=== PATIENT | female | born 1955 | race African-American/Black ===

== ENCOUNTER 2018-12-19 08:26 | Emergency (ER) | payer MEDICARE, OTHER ==
[~2018-12-19] VITALS: Ht 162.6 cm; Wt 115.2 kg
[2018-12-19] MEDS ORDERED: Isovue-300 100ml vial INJ PRN (08:30)
[2018-12-19] MEDS ORDERED: TRAZODONE HCL50 MG ORAL (08:34)
[2018-12-19] MEDS ORDERED: METFORMIN500 MG/5 M PO (08:34)
[2018-12-19] MEDS ORDERED: COLACE100 MG ORAL (08:34)
[2018-12-19] MEDS ORDERED: GUAIFENESIN200 MG ORAL (08:34)
[2018-12-19] MEDS ORDERED: METOPROLOL TART25 MG ORAL (08:34)
[2018-12-19] MEDS ORDERED: OMEPRAZOLE20 M2 ORAL (08:34)
[2018-12-19] MEDS ORDERED: VOLTAREN25 MG PO (08:34)
[2018-12-19] MEDS ORDERED: Morphine Sulfate 4mg/ml Inj (IV USE ONLY) IVP ONE (08:45)
[2018-12-19 09:12] LABS: BASOPHILS % (AUTO) 0.7 % (0.0-2.0); EOSINOPHILS % (AUTO) 2.7 % (0.0-3.0); HEMATOCRIT 41.4 % (37.0-47.0); HEMOGLOBIN 13.4 G/DL (12.0-16.0); MEAN CORPUSCULAR VOLUME 88 FL (80-99); MONOCYTES % (AUTO) 2.1 % (1.0-10.0); NEUTROPHILS % (AUTO) 76.5 % (45.0-75.0); PLATELET COUNT 310 K/UL (150-450); RED CELL DISTRIBUTION WIDTH 13.1 % (11.6-14.8); WHITE BLOOD COUNT 5.7 K/UL (4.8-10.8)
--- NOTE | 2018-12-19 09:21 | Emergency Room Report ---
History of Present Illness General Chief Complaint: Abdominal Pain Source: Patient, EMS Present Illness HPI This patient has a history of stage IV metastatic colon cancer. She underwent chemotherapy last week. She states that prior to that her last chemotherapy was in September of this year. She had been doing well. She underwent chemotherapy on of last week. She states on Tuesday she began developing left lower quadrant abdominal pain and recurrent diarrhea. She states the pain is severe. She denies nausea or vomiting. She denies dysuria or hematuria. She is not on any pain medication. She denies fever or chills. She has no other complaints. Allergies: Coded Allergies: IBUPROFEN (Verified Allergy, Unknown, 12/19/18) Patient History Past Medical History: see triage record, DM, HTN, asthma, other - Stage 4 metastatic ca Social History: Denies: smoking, alcohol use, drug use Reviewed Nursing Documentation: PMH: Agreed; PSxH: Agreed Nursing Documentation-PMH Past Medical History: No History, Except For Hx Hypertension: Yes Hx Asthma: Yes Hx COPD: No - POSSIBLE METASTATIC DISEASE OF LUNG Hx Diabetes: Yes Hx Cancer: Yes - COLON CA Review of Systems All Other Systems: negative except mentioned in HPI Physical Exam Vital Signs Date Time Temp Pulse Resp B/P (MAP) Pulse Ox O2 Delivery O2 Flow Rate FiO2 12/19/18 08:14 97.5 102 18 125/78 (94) 93 Room Air Sp02 EP Interpretation: reviewed, normal General Appearance: no apparent distress, alert, GCS 15, non-toxic Head: normocephalic, atraumatic Eyes: bilateral eye normal inspection, bilateral eye PERRL ENT: hearing grossly normal, normal pharynx, no angioedema, normal voice Neck: full range of motion, supple/symm/no masses Respiratory: chest non-tender, lungs clear, normal breath sounds, no respiratory distress, no retraction, no accessory muscle use, speaking full sentences Cardiovascular #1: regular rate, rhythm, no edema Gastrointestinal: soft, non-distended, no guarding, no rebound, tenderness - TTP in the LLQ Rectal: deferred Musculoskeletal: back normal, gait/station normal, normal range of motion, non- tender Neurologic: alert, oriented x3, responsive, motor strength/tone normal, sensory intact, speech normal Psychiatric: judgement/insight normal, memory normal, mood/affect normal, no suicidal/homicidal ideation Skin: normal color, no rash, warm/dry, well hydrated Medical Decision Making Diagnostic Impression: Primary Impression: Abdominal pain Additional Impression: Diarrhea ER Course This patient has a known history of colon cancer. CT of her abdomen and pelvis show findings on her colon consistent with malignancy. There was notation on the CT abdomen and pelvis that there could be an underlying colitis but it is difficult to determine this based on the known colon cancer. I will go ahead and treat the patient as colitis. I will also give the patient pain medication to treat her metastatic colon cancer and abdominal pain. She was instructed to follow-up closely with her oncologist and primary care physician for further treatment, monitoring and evaluation. She is given close return precautions and follow-up instructions. Laboratory Tests Test 12/19/18 08:50 12/19/18 10:45 White Blood Count 5.7 K/UL (4.8-10.8) Red Blood Count 4.70 M/UL (4.20-5.40) Hemoglobin 13.4 G/DL (12.0-16.0) Hematocrit 41.4 % (37.0-47.0) Mean Corpuscular Volume 88 FL (80-99) Mean Corpuscular Hemoglobin 28.6 PG (27.0-31.0) Mean Corpuscular Hemoglobin Concent 32.5 G/DL (32.0-36.0) Red Cell Distribution Width 13.1 % (11.6-14.8) Platelet Count 310 K/UL (150-450) Mean Platelet Volume 7.1 FL (6.5-10.1) Neutrophils (%) (Auto) 76.5 % (45.0-75.0) H Lymphocytes (%) (Auto) 18.0 % (20.0-45.0) L Monocytes (%) (Auto) 2.1 % (1.0-10.0) Eosinophils (%) (Auto) 2.7 % (0.0-3.0) Basophils (%) (Auto) 0.7 % (0.0-2.0) Sodium Level 139 MMOL/L (136-145) Potassium Level 4.0 MMOL/L (3.5-5.1) Chloride Level 103 MMOL/L (98-107) Carbon Dioxide Level 27 MMOL/L (21-32) Anion Gap 9 mmol/L (5-15) Blood Urea Nitrogen 12 mg/dL (7-18) Creatinine 0.7 MG/DL (0.55-1.30) Estimate Glomerular Filtration Rate > 60 mL/min (>60) Glucose Level 115 MG/DL (74-106) H Calcium Level 9.2 MG/DL (8.5-10.1) Total Bilirubin 0.4 MG/DL (0.2-1.0) Aspartate Amino Transferase (AST) 14 U/L (15-37) L Alanine Aminotransferase (ALT) 18 U/L (12-78) Alkaline Phosphatase 63 U/L (46-116) Total Protein 7.0 G/DL (6.4-8.2) Albumin 2.6 G/DL (3.4-5.0) L Globulin 4.4 g/dL Albumin/Globulin Ratio 0.6 (1.0-2.7) L Lipase 86 U/L (73-393) Urine Color Pale yellow Urine Appearance Clear Urine pH 7 (4.5-8.0) Urine Specific Clay 1.010 (1.005-1.035) Urine Protein Negative (NEGATIVE) Urine Glucose (UA) Negative (NEGATIVE) Urine Ketones 2+ (NEGATIVE) H Urine Blood Negative (NEGATIVE) Urine Nitrite Negative (NEGATIVE) Urine Bilirubin Negative (NEGATIVE) Urine Urobilinogen Normal MG/DL (0.0-1.0) Urine Leukocyte Esterase 1+ (NEGATIVE) H Urine RBC 0-2 /HPF (0 - 2) Urine WBC 2-4 /HPF (0 - 2) Urine Squamous Epithelial Cells Moderate /LPF (NONE/OCC) H Urine Bacteria Occasional /HPF (NONE) CT/MRI/US Diagnostic Results CT/MRI/US Diagnostic Results : Imaging Test Ordered: CT abd/pelvis Impression Impression: Endoluminal stent within the proximal descending colon. Note that the ends of the stent, particularly the proximal end, are not centered within the colonic lumen. Wall thickening of the descending colon and distal splenic flexure. Infiltration of the pericolonic fat and regional lymphadenopathy. Given stated clinical history of colon carcinoma the presence of the above-mentioned stent, this presumably represents an area of malignancy. However, given the presence of colonic diverticula and surrounding inflammatory changes incidentally noted, the possibility of superimposed acute diverticulitis should also be considered. In addition, given stated clinical history of diarrhea, findings could in part represent colitis. Fairly extensive colonic diverticulosis elsewhere. Multiple lung nodules. Most likely on the basis of metastatic disease given known clinical history Somewhat prominent gastric mucosal folds; doubt significance but possibly gastritis should be considered Borderline cardiomegaly Pericardial effusion Focal fatty infiltration in the liver Uterine fibroids, degenerative spondylosis, fat-containing umbilical hernia, focal hepatic fatty change central venous catheter incidentally noted Last Vital Signs Date Time Temp Pulse Resp B/P (MAP) Pulse Ox O2 Delivery O2 Flow Rate FiO2 12/19/18 08:14 97.5 102 18 125/78 (94) 93 Room Air Status: improved Disposition: HOME, SELF-CARE Condition: Improved Patient Instructions: Abdominal Pain, Adult Jillian Valentino DO Dec 19, 2018 09:21
[2018-12-19 09:39] VITALS: BP 132/71
[2018-12-19 09:39] LABS: ALANINE AMINOTRANSFERASE 18 U/L (12-78); ALBUMIN 2.6 G/DL (3.4-5.0); ALBUMIN/GLOBULIN RATIO 0.6 (1.0-2.7); ALKALINE PHOSPHATASE 63 U/L (46-116); ANION GAP 9 mmol/L (5-15); ASPARTATE AMINO TRANSFERASE 14 U/L (15-37); BILIRUBIN,TOTAL 0.4 MG/DL (0.2-1.0); BLOOD UREA NITROGEN 12 mg/dL (7-18); CALCIUM 9.2 MG/DL (8.5-10.1); CARBON DIOXIDE 27 MMOL/L (21-32); CHLORIDE 103 MMOL/L (98-107); CREATININE 0.7 MG/DL (0.55-1.30); SODIUM 139 MMOL/L (136-145)
--- NOTE | 2018-12-19 10:49 | Diagnostic Imaging Report ---
Clinical Indication: Abdominal pain, history of stage IV metastatic colon cancer, left lower quadrant abdominal pain and recurrent diarrhea Technique: No oral contrast utilized, per emergency room physician request IV administration nonionic contrast. Venous phase spiral acquisition obtained through the abdomen and pelvis. Multiplanar reconstructions were generated. Total dose length product 1455.16 mGycm. CTDIvol(s) 26.25 mGy. Dose reduction achieved using automated exposure control Comparison: none Findings: There is an area of colon wall thickening involving the distal aspect of the splenic flexure and extending into the proximal descending colon. There is a stent in place in this area. However, the proximal orifice of the stent is covered by the lateral wall of the colon rather than being centered within the lumen. The distal orifice of the stent may also to some extent be covered by the posterior wall of the colon, but at least a portion of the distal orifice opens into the colon lumen. The central part of the stent is somewhat narrowed to approximately 12 mm. There is some thickening of the adjacent fascia as well as infiltration of the pericolonic fat in this area. No extraluminal gas or fluid is demonstrated. There is fairly extensive colonic diverticulosis. There is mild wall thickening of the distal descending colon without pericolonic fat infiltration. There are a few prominent regional lymph nodes demonstrated. The appendix is normal. No small bowel distention. There is a tiny umbilical hernia which contains only fat, as well as mild diastasis of the rectus abdominis tendon. No free or loculated intraperitoneal gas or fluid. Gastric mucosal folds are somewhat prominent and enhancing. The duodenum and distal esophagus are unremarkable. The liver demonstrates focal fatty infiltration in the usual location adjacent to the falciform ligament. No definite liver mass demonstrated. The gallbladder, bile ducts, pancreas, spleen, adrenals are unremarkable. The kidneys demonstrate some scalloping of the margins. This may be developmental or on the basis of old scarring. No focal abnormality, renal or ureteral calculi, hydronephrosis or hydroureter demonstrated. The bladder is unremarkable. The uterus demonstrates a few tiny subserosal fibroids. The adnexal structures are unremarkable. Multiple small nodules are seen at both lung bases, measuring up to 6 mm in diameter. The heart is borderline enlarged. There is pericardial effusion which measures up to 1 cm thick. The bones demonstrate degenerative spondylosis changes. The tip of a central venous catheter is seen in the superior vena cava. Impression: Endoluminal stent within the proximal descending colon. Note that the ends of the stent, particularly the proximal end, are not centered within the colonic lumen. Wall thickening of the descending colon and distal splenic flexure. Infiltration of the pericolonic fat and regional lymphadenopathy. Given stated clinical history of colon carcinoma the presence of the above-mentioned stent, this presumably represents an area of malignancy. However, given the presence of colonic diverticula and surrounding inflammatory changes incidentally noted, the possibility of superimposed acute diverticulitis should also be considered. In addition, given stated clinical history of diarrhea, findings could in part represent colitis. Fairly extensive colonic diverticulosis elsewhere. Multiple lung nodules. Most likely on the basis of metastatic disease given known clinical history Somewhat prominent gastric mucosal folds; doubt significance but possibly gastritis should be considered Borderline cardiomegaly Pericardial effusion Focal fatty infiltration in the liver Uterine fibroids, degenerative spondylosis, fat-containing umbilical hernia, focal hepatic fatty change central venous catheter incidentally noted Findings discussed by phone with Dr. Samuel at the time of interpretation The CT scanner at [facility] is accredited by the [employer] and the scans are performed using protocols designed to limit radiation exposure to as low as reasonably achievable to attain images of sufficient resolution adequate for diagnostic evaluation.
[2018-12-19 10:55] LABS: APPEARANCE,URINE CLEAR; BILIRUBIN, URINE NEGATIVE (NEGATIVE); COLOR,URINE PALE YELLOW; GLUCOSE, URINE (UA) NEGATIVE (NEGATIVE); KETONES,URINE 2+ (NEGATIVE); LEUKOCYTE ESTERASE ,URINE 1+ (NEGATIVE); NITRITE,URINE NEGATIVE (NEGATIVE); PH,URINE 7 (4.5-8.0); PROTEIN,URINE NEGATIVE (NEGATIVE); UROBILINOGEN,URINE NORMAL MG/DL (0.0-1.0)
[2018-12-19 10:56] VITALS: BP 147/71
[2018-12-19 12:12] VITALS: BP 168/92
[2018-12-19] MEDS ORDERED: Ciprofloxacin 500mg tab ORAL ONE (12:30)
[2018-12-19] MEDS ORDERED: metroNIDAZOLE 500mg tab ORAL ONE (12:30)
[2018-12-19] MEDS ORDERED: METRONIDAZOLE500 MG ORAL (12:56)
[2018-12-19] MEDS ORDERED: NORCO 5-325 TA1 EACH ORAL (12:56)
[2018-12-19] MEDS ORDERED: CIPROFLOXACIN500 M2 ORAL (12:56)
[2018-12-19 13:14] VITALS: BP 132/87
== END 2018-12-19 13:18 | disposition home or self-care (01) ==
LOC: EDBD 08:26 → EMR 09:00
DX: R10.32 Left lower quadrant pain (principal); R19.7 Diarrhea, unspecified; Z88.6 Allergy status to analgesic agent; I10 Essential (primary) hypertension; Z85.038 Personal history of other malignant neoplasm of large intestine; E11.9 Type 2 diabetes mellitus without complications; K76.0 Fatty (change of) liver, not elsewhere classified; D25.9 Leiomyoma of uterus, unspecified; R91.8 Other nonspecific abnormal finding of lung field
CPT/HCPCS: 36415; 74177; 80053; 81003; 83690; 85025; 96361; 96374; 96375; 99284; J2270; J2405; Q9967